=== PATIENT | male | born 1990 | race Hispanic/Latino ===

== ENCOUNTER 2022-12-14 11:22 | Emergency (ER) | payer OTHER ==
[~2022-12-14] VITALS: Ht 175.3 cm; Wt 103.4 kg
[2022-12-14] MEDS ORDERED: DiphenhydrAMINE HCL 50 MG/ML VIAL IV ONE (12:30)
[2022-12-14] MEDS ORDERED: 0.9%NACL 1000ML 1,000 ML IV ONE (12:30)
[2022-12-14] MEDS ORDERED: METOCLOPRAMIDE 10 MG/2 ML VIAL IM ONE (12:30)
[2022-12-14] MEDS ORDERED: KETOROLAC 30MG VIAL (30MG/ML) IVP ONE (13:30)
[2022-12-14 16:03] VITALS: BP 124/70
[2022-12-14] MEDS ORDERED: HYDROCODONE/ACETAMINOPHEN 5/325 MG TAB PO ONE (16:30)
[2022-12-14] MEDS ORDERED: DIAZEPAM 5 MG TABLET PO ONE (16:30)
== END 2022-12-14 17:39 | disposition home or self-care (01) ==
LOC: EDSEX 11:22 → EDH 11:22
DX: G43.009 Migraine without aura, not intractable, without status migrainosus (principal)
CPT/HCPCS: 99284; 96374; 96361; 96375; 96372; J1200; J7030; J1885; J2765